=== PATIENT | female | born 1990 | race Caucasian/White ===

== ENCOUNTER → 2017-07-19 | Outpatient (CLI) | payer MEDICAID ==
[~2017-07-19] MED LIST: CIPRO 500MG TA500 MG PO; HYDROCODONE-APA1 TA1 PO; NOMEDS *
[2017-07-19 15:02] LABS: HEMOGLOBIN 15.2 g/dL (12.2-16.2); LYMPH # 4.1 K/mm3 (0.7-4.5); LYMPH % 37.6 % (10-50.0)
[2017-07-19 15:18] LABS: URINE BILIRUBIN - DIPSTICK NEGATIVE (NEG); URINE BLOOD 2+ (NEG)
[2017-07-19 18:55] LABS: BUN 8 mg/dL (7-18); GFR (ESTIMATED) 119 ML/MIN (59-)
== END ==
LOC: LAB 14:43
PROVIDERS: Obstetrics & Gynecology
DX: N80.0 Endometriosis of uterus (principal); Z01.812 Encounter for preprocedural laboratory examination

== ENCOUNTER 2017-07-22 06:15 | Inpatient (IN) | payer MEDICAID ==
[~2017-07-22] VITALS: Ht 162.6 cm; Wt 72.6 kg
[2017-07-22] VITALS (12 sets, daily range): BP systolic 104–150; BP diastolic 68–94
[~2017-07-22 06:15] MED LIST changes: -HYDROCODONE-APA1 TA1 PO
--- NOTE | 2017-07-22 08:52 | Anesthesia Record ---
Anesthesia Record Part I Total IV fluids: 700 EBL (ml): 200 Urine Output: 150 B/P: 162/77 % SaO2: 98 Pulse: 87 Resps: 20 Temp: 97.6 Patient is: Awake, Stable Stable to PACU at: 0850 at 0852
--- NOTE | 2017-07-22 08:53 | Anesthesia Record ---
Anesthesia Record Part II Discharge time: 919 Destination: Second Floor PACU nurse assessment review? Yes Patient is: Stable Anesthesia complications? No at 0820
--- NOTE | 2017-07-22 08:54 | Operative Note ---
Procedure/Operative Record Date of Procedure: 07/22/17 Referring physician: Dr. Neff Pre-op diagnosis: 1. Pelvic pain. 2. Endometriosis. 3. Pelvic adhesions. Post-op diagnosis: 1. Pelvic pain. 2. Endometriosis. 3. Leiomyoma uteri. 4. Extensive pelvic adhesions. Procedure performed: 1. Exploratory laparotomy. 2. Extensive lysis of adhesions. 3. LEFT salpingo- oophorectomy. 4. Myomectomy. Surgeon: Peyman Justice Slot Machine Mechanic(s): LAMINE Jara Anesthesia: Gen., COST ACCOUNTING CLERK Anat Indications: 1. Pelvic pain. 2. Endometriosis. 3. Pelvic adhesions. Description of procedure: As the patient was prepped and draped in usual fashion and general anesthesia was administered, a lower abdominal midline incision was made through the previous incision, and the fat and fascia were in the usual fashion, bleeders being clamped and coagulated along the way. The peritoneum was entered with Metzenbaum scissors, and extended above and below. There were extensive omental adhesions to the anterior abdominal wall. These were taken down with a combination of sharp dissection and cautery, with blood vessels being tied off with free ties of 2-0 Vicryl. The bowel was then packed away, and a self- retaining Saumya retractor with bladder blade was placed. The upper abdomen was normal, with the exception of the above-mentioned adhesions. The appendix was surgically absent. There were extensive adhesions in the pelvis. The uterus was retroflexed and adherent to the cul-de-sac. Endometrial implants were noted throughout the pelvis. A small leiomyoma was noted on the anterior surface of the uterus. The RIGHT tube and ovary, after being dissected free, was normal. On the LEFT side, the tube was draped over a 6 cm endometrioma, which was undergoing torsion because of the extensive adhesions. After careful lysis of those adhesions, the LEFT ovarian and infundibulopelvic ligaments were crossclamped and cut, thus removing the LEFT adnexa. These pedicles were Merlin sutured, and then free tied with #1 Vicryl. Hemostasis was good. Extensive lysis of adhesions was then carried out in the cul-de-sac, thus freeing up the uterus and RIGHT adnexa. The anterior leiomyoma was excised. There was minimal bleeding in the base was fulgurated. Copious irrigation was then carried out, and Interceed was placed over the surface of the uterus to obviate the formation of adhesions. There was no other pathology noted. The peritoneum, muscle and fascia were closed with a running unlocked suture of 2-0 Novafil. The subcutaneous fat and Ras's fascia were closed with a running unlocked suture of 2-0 Vicryl. Skin was closed with a subcuticular suture of 3-0 Vicryl, and appropriately dressed. The urine was clear in the Gomez catheter. The sponge and needle counts correct. Descemet blood loss was 200 mL. The patient tolerated the procedure well, and was taken to PACU in excellent condition. She will be admitted postoperatively. EBL (ml): 200 Complications: None Specimens: LEFT tube and ovary, leiomyoma at 0854
[2017-07-22 09:35] LABS: URINE BILIRUBIN - DIPSTICK NEGATIVE (NEG); URINE BLOOD 1+ (NEG)
[2017-07-22 11:22] LABS: HEMOGLOBIN 13.8 g/dL (12.2-16.2)
--- NOTE | 2017-07-22 16:51 | ACUTE CARE PROGRESS NOTE (QUA) ---
Progress Notes Subjective Date 07/22/17 Time 1649 Note This is day of surgery. Surgery has been explained to the patient. The patient is afebrile. Vital signs stable. Urine output good. She had some initial problems with pain management, but these seem to be resolved at this point. Impression: Stable. Assessment/Plan This inpt stay is expected to cross 2 MNs from start of care Yes (major surgery) at 1653
[2017-07-23] VITALS: BP 112/68
[2017-07-23 05:58] VITALS: BP 141/90
--- NOTE | 2017-07-23 07:29 | ACUTE CARE PROGRESS NOTE (QUA) ---
Progress Notes Subjective Date 07/23/17 Time 0728 Note This is postop day number 1. The patient is afebrile. Vital signs stable. Wound clean. Bowel sounds are hypoactive. She is slightly distended. Still having some pain control issues. I'm going to switch her to Toradol, ambulate, and increased to full liquids. Hemoglobin 13.8 g. Assessment/Plan This inpt stay is expected to cross 2 MNs from start of care Yes (major surgery) at 5212
[2017-07-23 08:30] VITALS: BP 143/98
--- OUTSIDE RECORDS SUMMARY | 2017-07-23 10:26 | External Medical Summary Rpt | CCD ---
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 IMMUNOFLU ORES CUL 18309 [facility] PRSMPTV 8 [facility] PTHGNC ORGANISM SCRN W/COLONY ESTIMJ SYPHILIS 13325 [facility] TEST [address] [place] [address] NON-TREPO NEMAL ANTIBODY QUAL ANTIBODY 45414 [facility] SCREEN [address] [place] [address] RBC EACH SERUM TECHNIQUE BLOOD 97189 [facility] COUNT [address] [place] [address] COMPLETE AUTO&AUTO DIFRNTL WBC SMR PRIM 27904 [facility], SRC WET 8 N SANKET L MOUNT OBSTETRIC NFCT AGT S AND GYNECOLOG Y US PREG 80944 SATISHMac BOO JR, UTERUS 8 N SANKET L AFTER 1ST OBSTETRIC TRIMEST S AND GYNECOLOG GESTATION Y IADNA 50648 PATHOLOGY PATHOLOGY CHLAMYDIA 8 & & CYTOLOGY CYTOLOGY TRACHOMAT LAB LAB IS AMPLIFIED PROBE TQ URINLS 41733 FRANCIS BLANCO, DIP 8 LENKA Wilkins STICK/TAB LET REAGNT NON-AUT[place]SCPY [place] PREG 85265 AJ ROCHA UTERUS 8 [facility] AFTER [address] [place] [address] [place] [address] [place] PA[place], 8 RADIOLOGY J UTERUS LIMITED 1/> FETUSES URINE 93524 FRANCIS BLANCO, 8 LENKA Wilkins TEST VISUAL COLOR CMPRSN METHS URINLS 68421 FRANCIS BLANCO, DIP 8 LENKA Wilkins STICK/TAB LET REAGNT NON-AUTO MICRSCPY DEMO&/BEATRICE 20960 AJ ROCHA L OF PT 8 [facility] AERSL GEN/NEB/I NHLR/IP BLOOD 47081 AJ ROCHA COUNT 8 [facility] AUTO&AUTO DIFRNTL WBC COMPREHEN 10146 AJ ROCHA SIVE 8 [facility] PANEL Encounters Encounter Start End Date Code Location Performer Type Date OFFICE 42064 [facility] 7 7 HEALTH T VISIT SOLUTIONS 25 IN MINUTES [facility] 7 7 [facility] T OFFICE 94403 [facility] 7 7 HEALTH T VISIT SOLUTIONS 25 IN MINUTES OFFICE 72117 [facility] 7 7 HEALTH T NEW 30 SOLUTIONS MINUTES IN EMERGENCY 26772 [facility] [address] [facility] EMERGENCY T VISIT PHYS MODERATE SEVERITY EMERGENCY 66863 [facility] DEPT 4 4 DANIA VISIT EMERGENCY HIGH PHYS SEVERITY& THREAT [facility] ANGELINA - 4 4 [facility] 4 4 [facility] T EMERGENCY 09415 [facility] 4 4 [facility] T VISIT MODERATE SEVERITY OFFICE 22150 [facility] 2 2 T VISIT 15 MINUTES EMERGENCY 80805 [facility] 2 2 EMERGENCY DEPARTMEN SERVICES T VISIT HIGH/URGE NT SEVERITY [facility]OSP[facility] - 0 0 [facility] OUTPATIEN T OFFICE 64101 [place], OUTPATIEN 0 0 PRIMARY SATISH T VISIT HEALTH 15 CARE MINUTES OFFICE 57371 [facility] OUTPATIEN 0 0 T NEW 30 MINUTES OFFICE 75158 [facility] 0 0 PRIMARY LATASHA T VISIT HEALTH 15 CARE MINUTES OFFICE 01843 [place] [facility] OUTPATIEN 0 0 PRIMARY LATASHA T NEW 45 HEALTH MINUTES CARE OFFICE 25074 PRIMARY MATTEO, OUTPATIEN 9 9 [facility] T VISIT ASSOCIATE 15 S PSC MINUTES [facility] - 9 9 [facility] T OFFICE 40324 PRIMARY MATTEO, OUTPATIEN 9 9 HEALTH EDWAR M T VISIT ASSOCIATE 15 S PSC MINUTES OFFICE 27407 DHS/[facility] 9 9 HEALTH MD HEALTH T VISIT 5 CENTRAL MINUTES BANK ACCT DEPARTMEN T OFFICE 57832 PRIMARY MATTEO, OUTPATIEN 9 9 [facility] T VISIT ASSOCIATE 10 S PSC MINUTES [facility] 9 [facility] T OFFICE 18994 PRIMARY MATTEO, OUTPATIEN 9 9 HEALTH EDWAR M T VISIT ASSOCIATE 15 S PSC MINUTES OFFICE 23811 PRIMARY MATTEO, OUTPATIEN 9 9 HEALTH EDWAR M T VISIT ASSOCIATE 15 S PSC MINUTES OFFICE 66505 PRIMARY MATTEO, OUTPATIEN 9 9 HEALTH EDWAR M T VISIT ASSOCIATE 15 S PSC MINUTES OFFICE 30347 PRIMARY MATTEO, OUTPATIEN 8 8 [facility] T VISIT ASSOCIATE 15 S PSC MINUTES EMERGENCY 17654 [facility], [address] T VISIT PHYS INC MODERATE SEVERITY [facility] 8 [facility] 77001 [facility] T VISIT LIMITED/M INOR PROB OFFICE 99787 [facility] 8 [facility] T VISIT ASSOCIATE 15 S PSC MINUTES EMERGENCY 59749 [facility] 8 8 DANIA [facility] EMERGENCY AYAKA T VISIT PHYS INC M HIGH/URGE NT SEVERITY [facility]OS[facility] - 8 8 N OUTPATIEN [facility] OFFICE 44108 NAIDA HIGH , OUTPATIEN 8 8 N SANKET L T VISIT OBSTETRIC 15 S AND MINUTES GYNECOLOG Y OFFICE 32533 GEORGEW HIGH JR, OUTPATIEN 8 8 N SANKET L T VISIT OBSTETRIC 15 S AND MINUTES GYNECOLOG Y EMERGENCY 27796 [facility], 8 8 DANIA JOHANNA Silva DEPARTMEN EMERGENCY T VISIT PHYS INC HIGH/URGE NT SEVERITY OFFICE 79597 [facility] JR, OUTPATIEN 8 8 N SANKET L T VISIT OBSTETRIC 15 S AND MINUTES GYNECOLOG Y OFFICE 56643 [place] [facility] JR, OUTPATIEN 8 8 N SANKET L T VISIT OBSTETRIC 15 S AND MINUTES GYNECOLOG Y OFFICE 47113 [place] [facility], OUTPATIEN 8 8 N SANKET L T VISIT OBSTETRIC 15 S AND MINUTES GYNECOLOG Y OFFICE 21422 [place] [facility], OUTPATIEN 8 8 N SANKET L T VISIT OBSTETRIC 15 S AND MINUTES GYNECOLOG Y OFFICE 22079 [place] [facility], OUTPATIEN 8 8 N SANKET L T NEW 45 OBSTETRIC MINUTES S AND GYNECOLOG Y OFFICE 63515 MATTEO FELIPE OUTPATIEN 8 8 EDWAR Wilkins T VISIT 15 MINUTES OFFICE 08047 FRANCIS BLANCO OUTPATIEN 8 8 LENKA Wilkins T VISIT 15 MINUTES [facility] 8 [facility] T OFFICE 75894 MATTEO FELIPE OUTPATIEN 8 8 EDWAR Wilkins T VISIT 15 MINUTES OFFICE 39595 FRANCIS BLANCO OUTPATIEN 8 8 LENKA Wilkins T VISIT 25 MINUTES EMERGENCY 62372 [facility], 8 8 DANIA Silva [facility] EMERGENCY T VISIT PHYS INC LOW/MODER SEVERITY OFFICE 49331 MATTEO FELIPE OUTPATIEN 8 8 EDWAR Wilkins T VISIT 15 MINUTES [facility] 8 [facility] T EMERGENCY 67611 [place] 8 8 [facility] T VISIT LOW/MODER SEVERITY EMERGENCY 70815 [facility], 8 8 DANIA Rey [facility] EMERGENCY T VISIT PHYS INC HIGH/URGE NT SEVERITY HOSPITAL [place] - 8 8 [facility] T OFFICE 11521 FRANCIS BLANCO OUTPATIEN 8 8 [place] LENKA Wilkins T VISIT 15 MINUTES
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
--- OUTSIDE RECORDS SUMMARY | 2017-07-23 10:30 | External Medical Summary Rpt | CCD ---
Demographics Preferred Language Algerian Marital Status Unknown Uatsdin Affiliation Unknown Race Unknown Ethnic Group Unknown Author Author , BRONSON DOBSON Address Unknown Phone Immunization Unable to retrieve immunization data due to connection failure with Immunization Registry. Please try again later.
--- OUTSIDE RECORDS SUMMARY | 2017-07-23 10:30 | External Medical Summary Rpt | CCD ---
Demographics Preferred Language Citizen Of [place] Marital Status Unknown Hindu Affiliation Unknown Race Unknown Ethnic Group Unknown Author Author , BRONSON DOBSON Address Unknown Phone Immunization Unable to retrieve immunization data due to connection failure with Immunization Registry. Please try again later.
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
--- OUTSIDE RECORDS SUMMARY | 2017-07-23 10:31 | External Medical Summary Rpt ---
Author Author [facility], [facility] [employer] [facility] [employer] Address Unknown Phone Unavailable Results Comprehensive metabolic 2000 panel in Serum or Plasma Observa Value Referen Units Interpr Notes Date tion ce etation Range Albumin/G 1.1 - 1.8 No Normal No Jul 19 lobulin informati informati 2017 2:45 [Mass on in on in PM ratio] in source source Serum or data data Plasma Albumin 3.4 - 5.0 gm/dL Normal No Jul 19 [Mass/vol informati 2017 2:45 ume] in on in PM Serum or source Plasma data Alkaline 46 - 116 U/L Normal No Jul 19 phosphata informati 2017 2:45 se on in PM [Enzymati source c data activity/ volume] in Serum or Plasma Bilirubin 0.2 - 1.0 mg/dL Normal No Jul 19 .total informati 2016 2:45 [Mass/vol on in PM ume] in source Serum or data Plasma Urea 7 - 18 mg/dL Normal No Jul 19 nitrogen informati 2017 2:45 [Mass/vol on in PM ume] in source Serum or data Plasma Calcium 8.5 - mg/dL Normal No Jul 19 [Mass/vol 10.1 informati 2017 2:45 ume] in on in PM Serum or source Plasma data Chloride 98 - 107 mmoL/L Normal No Jul 19 [Moles/vo informati 2017 2:45 lume] in on in PM Serum or source Plasma data Carbon 21.0 - mmoL/L Normal No Jul 19 dioxide, 32.0 informati 2017 2:45 total on in PM [Moles/vo source lume] in data Serum or Plasma Creatinin 0.55 - mg/dL Normal No Jul 19 e 1.02 informati 2017 2:45 [Mass/vol on in PM ume] in source Serum or data Plasma Estimated 59- ML/MIN No REFERENCE Jul 19 informati RANGE: 2017 2:45 glomerula on in >60 PM r source ML/MIN/1. filtratio data 73 SQUARE n rate METERSIf (GF this patient is -A merican, then multiply theresult by 1.210. Globulin 1.3 - 3.2 gm/dL High No Jul 19 [Mass/vol informati 2016 2:45 ume] in on in PM Serum source data Glucose 74 - 106 mg/dL Normal No Jul 19 [Mass/vol informati 2016 2:45 ume] in on in PM Serum or source Plasma data Potassium 3.5 - 5.1 mmoL/L Normal No Jul 192016 2:45 [Moles/vo on in PM lume] in source Serum or data Plasma Sodium 136 - 145 mmoL/L Normal No Jul 19 [Moles/vo informati 2016 2:45 lume] in on in PM Serum or source Plasma data Aspartate 15 - 37 U/L Normal No Jul 192016 2:45 aminotran on in PM sferase source [Enzymati data c activity/ volume] in Serum or Plasma Alanine 12 - 78 U/L Normal No Jul 19 aminotran inform2016 2:45 sferase on in PM [Enzymati source c data activity/ volume] in Serum or Plasma Protein 6.4 - 8.2 gm/dL High No Jul 19 [Mass/vol informati 2016 2:45 ume] in on in PM Serum or source Plasma data Choriogonadotropin [Units/volume] in Serum or Plasma Observa Value Referen Units Interpr Notes Date tion ce etation Range Choriogon NEG No No No Jul 19 adotropin informati informati informati 2016 2:45 on in on in on in PM [Units/vo source source source lume] in data data data Serum or Plasma Urinalysis dipstick W Reflex Microscopic panel in Urine Observa Value Referen Units Interpr Notes Date tion ce etation Range Appeara CLEAR CLEAR No No No Jul 19 nce of informa informa informa 2016 Urine tion in tion in tion in 2:45 PM source source source data data data Bacteri 1+ O No No No Jul 19 a informa informa informa 2016 [Presen tion in tion in tion in 2:45 PM ce] in source source source Urine data data data sedimen t by Light microsc opy Bilirub NEGATIV NEG No No No Jul 19 in E informa informa informa 2016 [Presen tion in tion in tion in 2:45 PM ce] in source source source Urine data data data by Test strip Erythro 2+ NEG No Abnorma No Jul 19 cytes informa l informa 2016 [Presen tion in tion in 2:45 PM ce] in source source Urine data data Color YELLOW YELLOW No No No Jul 19 of informa informa informa 2017 Urine tion in tion in tion in 2:45 PM source source source data data data Glucose NEG No No No Jul 19 [Mass/vol informati informati informati 2016 2:45 ume] in on in on in on in PM Urine by source source source Test data data data strip Ketones NEGATIV NEG mg/dL No No Jul 19 E informa informa 2016 [Presen tion in tion in 2:45 PM ce] in source source Urine data data by Automat ed test strip Mucus NEGATIV NEG No No No Jul 19 [Presen E informa informa informa 2016 ce] in tion in tion in tion in 2:45 PM Urine source source source sedimen data data data t by Light microsc opy Nitrite NEGATIV NEG No No No Jul 19 E informa informa informa 2016 [Presen tion in tion in tion in 2:45 PM ce] in source source source Urine data data data by Test strip pH of 5.0 - 8.5 No Normal No Jul 19 Urine informati informati 2017 2:45 on in on in PM source source data data Protein NEG mg/dL No No Jul 19 [Mass/vol informati informati 2016 2:45 ume] in on in on in PM Urine by source source Automated data data test strip Erythro 20-50 0 rbc/hpf No No Jul 19 cytes informa informa 2016 [Presen tion in tion in 2:45 PM ce] in source source Urine data data sedimen t by Light microsc opy Specific 1.005 - No Normal No Jul 19 gravity 1.030 informati informati 2017 2:45 of Urine on in on in PM source source data data Epithel 10-20 0 - 5 #/hpf No No Jul 19 ial informa informa 2017 cells.s tion in tion in 2:45 PM quamous source source data data [Presen ce] in Urine sedimen t by Microsc opy high power field Urobili 0.2 NEG E.U./dL No No Jul 19 nogen informa informa 2016 [Presen tion in tion in 2:45 PM ce] in source source Urine data data by Test strip Leukocyte O wbc/hpf No No Jul 19 s informati informati 2016 2:45 [#/volume on in on in PM ] in source source Urine data data Urinalysis dipstick W Reflex Microscopic panel in Urine Observa Value Referen Units Interpr Notes Date tion ce etation Range Appeara CLEAR CLEAR No No No Jul 19 nce of informa informa informa 2016 Urine tion in tion in tion in 2:45 PM source source source data data data Bilirub NEGATIV NEG No No No Jul 19 in E informa informa informa 2016 [Presen tion in tion in tion in 2:45 PM ce] in source source source Urine data data data by Test strip Erythro 2+ NEG No Abnorma No Jul 19 cytes informa l informa 2016 [Presen tion in tion in 2:45 PM ce] in source source Urine data data Color YELLOW YELLOW No No No Jul 19 of informa informa informa 2016 Urine tion in tion in tion in 2:45 PM source source source data data data Glucose NEG No No No Jul 19 [Mass/vol informati informati informati 2016 2:45 ume] in on in on in on in PM Urine by source source source Test data data data strip Ketones NEGATIV NEG mg/dL No No Jul 19 E informa informa 2016 [Presen tion in tion in 2:45 PM ce] in source source Urine data data by Automat ed test strip Mucus NEGATIV NEG No No No Jul 19 [Presen E informa informa informa 2016 ce] in tion in tion in tion in 2:45 PM Urine source source source sedimen data data data t by Light microsc opy Nitrite NEGATIV NEG No No No Jul 19 E informa informa informa 2016 [Presen tion in tion in tion in 2:45 PM ce] in source source source Urine data data data by Test strip pH of 5.0 - 8.5 No Normal No Jul 19 Urine informati informati 2016 2:45 on in on in PM source source data data Protein NEG mg/dL No No Jul 19 [Mass/vol informati informati 2016 2:45 ume] in on in on in PM Urine by source source Automated data data test strip Specific 1.005 - No Normal No Jul 19 gravity 1.030 informati informati 2016 2:45 of Urine on in on in PM source source data data Urobili 0.2 NEG E.U./dL No No Jul 19 nogen informa informa 2016 [Presen tion in tion in 2:45 PM ce] in source source Urine data data by Test strip CBC W Auto Differential panel in Blood Observa Value Referen Units Interpr Notes Date tion ce etation Range Basophils 0 - 0.2 K/MM3 Normal No Jul 19 inform2016 2:45 [#/volume on in PM ] in source Blood by data Automated count Basophils 0.1 - 2.0 % Normal No Jul 19 / informati 2016 2:45 leukocyte on in PM s in source Blood by data Automated count Eosinophi 0.0 - 0.4 K/mm3 Normal No Jul 19 ls informati 2016 2:45 [#/volume on in PM ] in source Blood by data Automated count Eosinophi 0.1 - % Normal No Jul 19 ls/100 12.0 informati 2016 2:45 leukocyte on in PM s in source Blood by data Automated count Granulocy 1.8 - 7.8 K/mm3 Normal No Jul 19 jayda informati 2016 2:45 [#/volume on in PM ] in source Blood by data Automated count Granulocy 37.0 - % Normal No Jul 19 jayda/100 80.0 informati 2016 2:45 leukocyte on in PM s in source Blood by data Automated count Hematocri 37.0 - % Normal No Jul 19 t [Volume 47.0 informati 2016 2:45 on in PM Fraction] source of Blood data Hemoglobi 12.2 - g/dL Normal No Jul 19 n 16.2 informati 2016 2:45 [Mass/vol on in PM ume] in source Blood data Lymphocyt 0.7 - 4.5 K/mm3 Normal No Jul 19 es informati 2016 2:45 [#/volume on in PM ] in source Unspecifi data ed specimen by Automated count Lymphocyt 10 - 50.0 % Normal No Jul 19 es informati 2016 2:45 [#/volume on in PM ] in source Unspecifi data ed specimen by Automated count Erythrocy 27 - 31.2 pg High No Jul 19 te mean informati 2016 2:45 corpuscul on in PM ar source hemoglobi data n [Entitic mass] Erythrocy 31.8 - g/dl Normal No Jul 19 te mean 35.4 informati 2016 2:45 corpuscul on in PM ar source hemoglobi data n concentra tion [Mass/vol ume] by Automated count Erythrocy 82.2 - fl Normal No Jul 19 te mean 97.8 informati 2016 2:45 corpuscul on in PM ar volume source [Entitic data volume] by Automated count Monocytes 0.1 - 1.0 K/mm3 Normal No Jul 19 informati 2016 2:45 [#/volume on in PM ] in source Blood by data Automated count Monocytes 1.7 - 9.3 % Normal No Jul 19 /100 informati 2017 2:45 leukocyte on in PM s in source Blood by data Automated count Platelet 7.4 - fl Normal No Jul 19 mean 10.4 informati 2016 2:45 volume on in PM [Entitic source volume] data in Blood by Automated count Platelets 142 - 424 K/mm3 Normal No Jul 19 informati 2016 2:45 [#/volume on in PM ] in source Blood data Erythrocy 4.2 - 5.4 M/mm3 Normal No Jul 19 jayda informati 2017 2:45 [#/volume on in PM ] in source Amniotic data fluid Erythrocy 11.5 - % Normal No Jul 19 te 17.5 informati 2016 2:45 distribut on in PM ion width source [Entitic data volume] by Automated count Leukocyte 4.8 - K/MM3 Normal No Jul 19 s 10.8 informati 2016 2:45 [#/volume on in PM ] in source Blood data
[2017-07-23 12:00] VITALS: BP 142/76
--- NOTE | 2017-07-23 15:32 | ACUTE CARE PROGRESS NOTE (QUA) ---
Progress Notes Subjective Date 07/23/17 Time 1531 Assessment/Plan This inpt stay is expected to cross 2 MNs from start of care Yes (major surgery) at 1538
[2017-07-23 16:00] VITALS: BP 142/86
[2017-07-23 20:00] VITALS: BP 137/90
[2017-07-24] VITALS (7 sets, daily range): BP systolic 129–152; BP diastolic 75–91
--- NOTE | 2017-07-24 09:03 | ACUTE CARE PROGRESS NOTE (QUA) ---
Progress Notes Subjective Date 07/24/17 Time 0902 Note This is postop day number 2. The patient is afebrile. Vital signs stable. Wound clean. Abdomen soft. She expressed a small amount of flatus, but is still slightly distended, going to give her Dulcolax suppository this morning. She is ambulating well. Her urine output is good. Assessment/Plan This inpt stay is expected to cross 2 MNs from start of care Yes (major surgery) at 0903
[2017-07-25 00:20] VITALS: BP 144/59
[2017-07-25 05:55] VITALS: BP 118/68
[2017-07-25 08:00] VITALS: BP 134/86
[2017-07-25 09:35] VITALS: BP 123/76
--- NOTE | 2017-07-25 10:06 | ACUTE CARE PROGRESS NOTE (QUA) ---
Progress Notes Subjective Date 07/25/17 Time 1004 Note This is postop day number 3. The patient is afebrile. Vital signs stable. Wound clean. Abdomen soft. She is eating and ambulating and voiding well. She has had a bowel movement. She will be discharged today. Assessment/Plan This inpt stay is expected to cross 2 MNs from start of care Yes (major surgery) at 1005
[2017-07-25] MEDS ORDERED: HYDROCODONE-APA1 TA1 PO (10:07)
--- NOTE | 2017-07-25 10:11 | DISCHARGE SUMMARY STANDARD ---
Discharge Summary Date of admission: 07/22/17 Date of discharge: 07/25/17 Patient condition: Stable Discharge diagnosis (es): 1. Pelvic pain. 2. Endometriosis. 3. Leiomyomata uteri. 4. Extensive pelvic adhesions. Hospital course: This 27-year-old white female was admitted for definitive treatment of the above diagnoses. On the date of admission, she was taken to the operating room, where she underwent an exploratory laparotomy with extensive lysis of adhesions, LEFT salpingo-oophorectomy and myomectomy, without complications. Postoperatively, the patient had some difficulty with pain management, but ultimately has done well. She is eating and ambulating, and does have bowel movement. Her wound is clean. Her abdomen is soft. She is afebrile, and her vital signs are stable. Her hemoglobin is 13.8 g. She is a smoker, but refuses smoking cessation patches. She is discharged home on the third postoperative day on Percocet 5/325 (number 30), 1 by mouth every 6 hours when necessary pain. She is given appropriate instructions as to diet, exercise, and wound care, and she is to return to the office in 2 weeks for follow-up. at 1010
[2017-07-25 10:50] VITALS: BP 134/86
== END 2017-07-25 10:50 | disposition home or self-care (01) | DRG 983 ==
LOC: SDC 06:15 → OB 06:20 → SDC 07:30 → OB 09:30
PROVIDERS: Obstetrics & Gynecology
PROC: 0UB90ZZ Excision of Uterus, Open Approach (ICD-10-PCS; principal; 2017-07-22 07:30)
PROC: 0UT60ZZ Resection of Left Fallopian Tube, Open Approach (ICD-10-PCS; principal; 2017-07-22 07:30)
PROC: 0UNF0ZZ Release Cul-de-sac, Open Approach (ICD-10-PCS; principal; 2017-07-22 07:30)
PROC: 0UT10ZZ Resection of Left Ovary, Open Approach (ICD-10-PCS; principal; 2017-07-22 07:30)
DX: R10.2 Pelvic and perineal pain (principal); D25.9 Leiomyoma of uterus, unspecified; N80.3 Endometriosis of pelvic peritoneum; N80.8 Other endometriosis; N73.6 Female pelvic peritoneal adhesions (postinfective)
CPT/HCPCS: J0131; J2405

== ENCOUNTER → 2017-08-02 | Outpatient (CLI) | payer MEDICAID ==
[~2017-08-02] MED LIST changes: +HYDROCODONE-APA1 TA1 PO
--- NOTE | 2017-08-02 18:29 | RADIOLOGY REPORT PS360 ---
CT ABD PELVIS W/ CONTRAST CLINICAL INDICATION: Pelvic pain, recent pelvic surgery/partial hysterectomy PELVIC PAIN ORDERING PHYSICIAN: Peyman Justice MD PATIENT AGE: 27 years COMPARISON: None TECHNIQUE: Axial images obtained with sagittal and coronal reformats. PROCEDURE: Oral Contrast: Redicat IV Contrast: 75 mL [id number]. FINDINGS: No acute finding in the lower chest. The liver, gallbladder, spleen, adrenal glands, pancreas, and kidneys have an unremarkable appearance. No hydronephrosis. No renal or ureteral calculi. No evidence of intestinal structure or free air. No evidence of appendicitis. Postsurgical changes are present involving the anterior abdominal wall in the infraumbilical region. There is a fluid collection within the abdominal wall incision in the infraumbilical area measuring 6.5 cm cephalad to caudad into 0.3 cm AP and 1.8 cm transverse consistent with either developing abscess or hematoma. No gas is evident in this region. There is a complex fluid collection within the cul-de-sac and measures 7.5 cm transverse and 4.7 cm AP. This shows some heterogeneous increased density within the collection and could be due to resolving hematoma or developing abscess. Complex density is present in the right adnexal region measuring 3.9 x 3.3 cm with heterogeneous enhancement and scattered areas of isoattenuation and may represent ovarian cystic changes. Follow-up with ultrasound may confirm. Tiny amount of gas is present in the left adnexal area within this small amount of fluid and may be postsurgical. There is some minimal thickening of the presacral and perirectal fat which is nonspecific. There is mild stranding of the anterior peritoneal fat within the pelvis which may be postsurgical. There are some low-density changes in the central aspect of the uterus consistent with mild prominence of the endometrium IMPRESSION: 1. Postsurgical changes of the intra-abdominal wall with small hematoma versus developing abscess in the infraumbilical region. 2. Complex fluid collection in the cul-de-sac and could represent resolving postsurgical changes with some hemorrhage. One cannot exclude the possibility of an abscess. Follow-up recommended. 3. Complex density in the right adnexal region possibly related to combination of ovarian cysts with ovarian enhancement. 4. Small amount fluid in left adnexa with tiny air bubble which may be postsurgical. Consider short-term follow-up to confirm stability and/or resolution of the above findings
== END ==
LOC: RAD 14:42
DX: R10.2 Pelvic and perineal pain (principal)
CPT/HCPCS: Q9967